=== PATIENT | female | born 1965 | race African-American/Black ===

== ENCOUNTER 2020-03-24 20:27 | Emergency (ER) | payer MEDICAID ==
[~2020-03-24] VITALS: Ht 170.2 cm; Wt 90.7 kg
[2020-03-24 20:47] VITALS: BP 125/87
--- NOTE | 2020-03-24 20:47 | NUR ---
ED Nurse Note: Patient walked in to ED from home c/o abdominal pain x1 month. Denies nausea, vomiting and diarrhea. Report pain got worse after eating. Per pt, she was seen at the other hospital for the same sx was dc with antacids but no relief. Afebrile. Not in any distress. VSS.
--- NOTE | 2020-03-24 21:00 | NUR ---
ED Nurse Note: IV line established. Blood specimen collected and sent to lab.
[2020-03-24] MEDS ORDERED: Morphine Sulfate 4mg/ml Inj (IV USE ONLY) IVP ONE (21:15)
[2020-03-24] MEDS ORDERED: Omnipaque-300 100ml vial INJ PRN (21:15)
[2020-03-24 21:19] LABS: EOSINOPHILS % (AUTO) 2.6 % (0.0-3.0); HEMATOCRIT 44.2 % (37.0-47.0); HEMOGLOBIN 13.4 G/DL (12.0-16.0); LYMPHOCYTES % (AUTO) 28.7 % (20.0-45.0); MEAN CORPUSCULAR VOLUME 78 FL (80-99); MONOCYTES % (AUTO) 4.6 % (1.0-10.0); NEUTROPHILS % (AUTO) 62.2 % (45.0-75.0); PLATELET COUNT 388 K/UL (150-450); RED BLOOD COUNT 5.66 M/UL (4.20-5.40); RED CELL DISTRIBUTION WIDTH 14.6 % (11.6-14.8); WHITE BLOOD COUNT 11.8 K/UL (4.8-10.8)
--- NOTE | 2020-03-24 21:19 | Emergency Room Report ---
History of Present Illness General Chief Complaint: Abdominal Pain Source: Patient (Gallito Carlin M.D.) Present Illness HPI Disclaimer: Please note that this report is being documented using [employer] technology. This can lead to erroneous entry secondary to incorrect interpretation by the dictating instrument. HPI: 54-year-old female history of coronary artery disease, hypertension presented with epigastric abdominal pain. She states she has had pain intermittently for 6 weeks. Worse with eating. Burning and radiating to the back. She denies any vomiting. Pain currently 8 out of 10. She denies any fevers. She does report normal soft stools. She was seen at an outside facility last week and was discharged on antacids but her pain has been persistent. PMH: Coronary artery disease, hypertension PSH: Reviewed Social Hx: Patient does smoke cigarettes, drinks occasionally denies illicit drug use (Gallito Carlin M.D.) Allergies: Coded Allergies: No Known Allergies (Unverified , 03/24/20) COVID-19 Screening Contact w/high risk pt: No Recent Travel to affected area: No Experienced COVID-19 symptoms?: No (Gallito Carlin M.D.) Nursing Documentation-PMH Hx Hypertension: Yes (Gallito Carlin M.D.) Review of Systems All Other Systems: negative except mentioned in HPI (Gallito Carlin M.D.) Physical Exam Vital Signs Date Time Temp Pulse Resp B/P (MAP) Pulse Ox O2 Delivery O2 Flow Rate FiO2 03/24/20 20:45 98.2 86 18 125/87 (100) 96 Room Air Sp02 EP Interpretation: reviewed, normal General Appearance: well appearing, no apparent distress Head: normocephalic, atraumatic Eyes: bilateral eye PERRL, bilateral eye EOMI ENT: hearing grossly normal, moist mucus membranes Neck: full range of motion, supple Respiratory: lungs clear, normal breath sounds, no rhonchi, no respiratory distress, no retraction, no wheezing Cardiovascular #1: normal peripheral pulses, regular rate, rhythm, no murmur Gastrointestinal: soft, non-distended, no guarding, tenderness - Noted and left upper quadrant of abdomen Neurologic: alert, oriented x3, no focal defects Skin: normal color, warm/dry (Gallito Carlin M.D.) Medical Decision Making Diagnostic Impression: Primary Impression: Abdominal pain Qualified Codes: R10.13 - Epigastric pain ER Course MDM: Patient presented for abdominal pain. This is been a chronic abdominal pain for the past 6 weeks. Differential included GERD, peptic ulcer, diverticulitis, pancreatitis to name a few. Clinical course-IV inserted, IV fluids, pain control and CT scan of the abdomen and pelvis ordered. Patient signed out to oncoming physician to follow-up on laboratory studies, CT scan of the abdomen pelvis and final disposition. Labs -mild leukocytosis noted Laboratory Tests Test 03/24/20 21:00 White Blood Count 11.8 K/UL (4.8-10.8) H Red Blood Count 5.66 M/UL (4.20-5.40) H Hemoglobin 13.4 G/DL (12.0-16.0) Hematocrit 44.2 % (37.0-47.0) Mean Corpuscular Volume 78 FL (80-99) L Mean Corpuscular Hemoglobin 23.7 PG (27.0-31.0) L Mean Corpuscular Hemoglobin Concent 30.3 G/DL (32.0-36.0) L Red Cell Distribution Width 14.6 % (11.6-14.8) Platelet Count 388 K/UL (150-450) Mean Platelet Volume 7.4 FL (6.5-10.1) Neutrophils (%) (Auto) 62.2 % (45.0-75.0) Lymphocytes (%) (Auto) 28.7 % (20.0-45.0) Monocytes (%) (Auto) 4.6 % (1.0-10.0) Eosinophils (%) (Auto) 2.6 % (0.0-3.0) Basophils (%) (Auto) 2.0 % (0.0-2.0) Sodium Level 141 MMOL/L (136-145) Potassium Level 4.0 MMOL/L (3.5-5.1) Chloride Level 104 MMOL/L (98-107) Carbon Dioxide Level 29 MMOL/L (21-32) Anion Gap 8 mmol/L (5-15) Blood Urea Nitrogen 18 mg/dL (7-18) Creatinine 1.0 MG/DL (0.55-1.30) Estimated Glomerular Filtration Rate > 60 mL/min (>60) Glucose Level 105 MG/DL (74-106) Calcium Level 8.8 MG/DL (8.5-10.1) Total Bilirubin 0.1 MG/DL (0.2-1.0) L Aspartate Amino Transferase (AST) 13 U/L (15-37) L Alanine Aminotransferase (ALT) 33 U/L (12-78) Alkaline Phosphatase 88 U/L (46-116) Total Protein 7.6 G/DL (6.4-8.2) Albumin 3.6 G/DL (3.4-5.0) Globulin 4.0 g/dL Albumin/Globulin Ratio 0.9 (1.0-2.7) L Lipase 148 U/L (73-393) (Gallito Carlin M.D.) ER Course This patient signed out to me. She presents with chief complaint of abdominal pain that is been going on for weeks. Labs unremarkable. CT scan was signed out to me. CT scan unremarkable. There is a lipoma at the splenic flexure. She does have some pain in that area pulling sensation area. She is also being scheduled for endoscopy. Has no respiratory issue or complaint. Will discharge home. (Selvin Vera MD) CT/MRI/US Diagnostic Results CT/MRI/US Diagnostic Results : Imaging Test Ordered: CT abdomen and pelvis Impression Read by radiologist. Intraluminal splenic flexure colonic lipoma. Mosaic lung attenuation. Otherwise negative. (Selvin Vera MD) Last Vital Signs Date Time Temp Pulse Resp B/P (MAP) Pulse Ox O2 Delivery O2 Flow Rate FiO2 03/24/20 20:47 86 18 Room Air 03/24/20 20:45 98.2 125/87 (100) 96 (Gallito Carlin M.D.) Status: improved (Selvin Vera MD) Disposition: HOME, SELF-CARE Condition: Stable Signed Out To: Dr. Vera (Gallito Carlin M.D.) Scripts Tramadol Hcl* (ULTRAM*) 50 Mg Tablet 50 MG ORAL Q6H PRN for For Pain, #20 TAB 0 Refills Prov: Selvin Vera MD 03/24/20 Patient Instructions: Abdominal Pain, Adult Additional Instructions: Follow-up with your doctor in 7 days. You may need a referral to see GI doctor for endoscopy. Return if worse. Gallito Carlin M.D. March 24, 2020 21:18 Selvin Vera MD March 24, 2020 22:50
[2020-03-24 21:40] LABS: ANION GAP 8 mmol/L (5-15); BLOOD UREA NITROGEN 18 mg/dL (7-18); CALCIUM 8.8 MG/DL (8.5-10.1); CARBON DIOXIDE 29 MMOL/L (21-32); CHLORIDE 104 MMOL/L (98-107); SODIUM 141 MMOL/L (136-145)
[2020-03-24 21:51] LABS: ALANINE AMINOTRANSFERASE 33 U/L (12-78); ALBUMIN 3.6 G/DL (3.4-5.0); ALBUMIN/GLOBULIN RATIO 0.9 (1.0-2.7); ALKALINE PHOSPHATASE 88 U/L (46-116); ASPARTATE AMINO TRANSFERASE 13 U/L (15-37); BILIRUBIN,TOTAL 0.1 MG/DL (0.2-1.0)
--- NOTE | 2020-03-24 22:04 | NUR ---
ED Nurse Note: Pt was taken for CT via ash[facility], accompanied by a tech.
--- NOTE | 2020-03-24 22:20 | NUR ---
ED Nurse Note: Pt came back from CT, not in any distress.
--- NOTE | 2020-03-24 22:31 | NUR ---
ED Nurse Note: Urine specimen collected and sent to lab.
[2020-03-24 22:41] LABS: APPEARANCE,URINE CLEAR; BILIRUBIN, URINE NEGATIVE (NEGATIVE); COLOR,URINE PALE YELLOW; GLUCOSE, URINE (UA) NEGATIVE (NEGATIVE); KETONES,URINE NEGATIVE (NEGATIVE); LEUKOCYTE ESTERASE ,URINE NEGATIVE (NEGATIVE); NITRITE,URINE NEGATIVE (NEGATIVE); PH,URINE 8 (4.5-8.0); PROTEIN,URINE NEGATIVE (NEGATIVE); UROBILINOGEN,URINE NORMAL MG/DL (0.0-1.0)
--- NOTE | 2020-03-24 22:45 | Diagnostic Imaging Report ---
EXAM: CT Abdomen and Pelvis With Intravenous Contrast CLINICAL HISTORY: PAIN TECHNIQUE: Axial computed tomography images of the abdomen and pelvis with intravenous contrast. CTDI is 14 mGy and DLP is 768 mGy-cm. One or more of the following dose reduction techniques were used: automated exposure control, adjustment of the mA and/or kV according to patient size, use of iterative reconstruction technique. Coronal and sagittal reformatted images were created and reviewed. COMPARISON: No relevant prior studies available. FINDINGS: Lung bases: Mosaic lung attenuation could represent small airways disease. ABDOMEN: Liver: Unremarkable. No mass. Gallbladder and bile ducts: Unremarkable. No calcified stones. No ductal dilation. Pancreas: Unremarkable. No mass. No ductal dilation. Spleen: Unremarkable. No splenomegaly. Adrenals: Unremarkable. No mass. Kidneys and ureters: Unremarkable. No solid mass. No hydronephrosis. Stomach and bowel: Intraluminal splenic flexure colonic lipoma 5.4 x 5. 1 x 2.6 cm without obstruction, this is a benign entity but could represent a lead point for intussusception in the future. Recommend nonemergent general surgery consultation for further management recommendations. No mucosal thickening. PELVIS: Appendix: No findings to suggest acute appendicitis. Bladder: Unremarkable. No mass. Reproductive: Hysterectomy. ABDOMEN and PELVIS: Intraperitoneal space: Unremarkable. No free air. No significant fluid collection. Bones/joints: No acute fracture. No dislocation. Soft tissues: Unremarkable. Vasculature: Unremarkable. No abdominal aortic aneurysm. Lymph nodes: Unremarkable. No enlarged lymph nodes. IMPRESSION: 1. Mosaic lung attenuation could represent small airways disease. 2. Intraluminal splenic flexure colonic lipoma 5.4 x 5.1 x 2.6 cm without obstruction, this is a benign entity but could represent a lead point for intussusception in the future. Recommend nonemergent general surgery consultation for further management recommendations. 3. No acute abnormality definitively identified to account for patient presentation. 4. Otherwise unremarkable study.
[2020-03-24] MEDS ORDERED: TRAMADOL HCL50 MG ORAL (22:50)
[2020-03-24 22:58] VITALS: BP 114/69
--- NOTE | 2020-03-24 22:58 | NUR ---
ED Nurse Note: Pt cleared by ERMD for discharge. DC instructions/prescription was given and explained to pt and verbalized understanding of teachings. All medical deviecs such as ID band and IV line removed. Pt is AAO x4, ambulatory and left with all personal belongings.
== END 2020-03-24 22:58 | disposition home or self-care (01) ==
LOC: EMR 22:28
DX: R10.13 Epigastric pain (principal); I11.9 Hypertensive heart disease without heart failure; I25.10 Atherosclerotic heart disease of native coronary artery without angina pectoris; F17.210 Nicotine dependence, cigarettes, uncomplicated; D17.79 Benign lipomatous neoplasm of other sites
CPT/HCPCS: 36415; 74177; 80053; 81003; 83690; 85025; 96361; 96374; J2270; Q9967; Z7502; 99284